=== PATIENT | female | born 1935 | race Caucasian/White ===

== ENCOUNTER → 2018-12-12 | Outpatient (CLI) | payer MEDICARE ==
--- NOTE | 2018-12-12 14:09 | Diagnostic Imaging Report ---
INDICATION: Prior history of breast carcinoma. Patient has an intra-abdominal mass with omental metastases. TECHNIQUE: Serum blood glucose level at the time of injection was 77 mg/dL. Patient was administered 13.2 mCi F-18 FDG intravenously in the right forearm and PET imaging from the top of the skull to mid thighs was performed. Noncontrast CT was also performed for attenuation correction and anatomic correlation. COMPARISON: No prior imaging is available for comparison. FINDINGS: There is symmetric activity throughout the brain. Soft tissues of the neck are unremarkable. There appears to be some physiologic activity within the right tonsillar pillar. Imaging through the chest demonstrates normal physiologic mediastinal activity. No mediastinal or hilar hypermetabolic lymphadenopathy is seen. The pulmonary parenchyma is unremarkable. Imaging through the abdomen shows physiologic activity within the GI and tracts. No abnormal hypermetabolism is identified. The associated CT portion of the exam does show an indeterminate somewhat low-density mass in the right abdomen anterior to the lower pole of the right kidney and slightly medial to the right colon. This measures approximately 3.6 cm AP x 3.2 cm transverse. This does not appear to communicate with small or large bowel and is indeterminate. This does not show FDG avidity however. No other abnormalities are detected. IMPRESSION: 1. Essentially unremarkable PET/CT study without evidence of FDG avid mass or lymphadenopathy. 2. Indeterminate low-density lesion in the right abdomen, as described. This does not show FDG uptake. Conventional CT with IV and oral contrast may be useful for further evaluation. Dictated by: Dictated on workstation # [id number]
== END ==
LOC: RAD 10:20
PROVIDERS: ATTEND Surgery
DX: C78.6 Secondary malignant neoplasm of retroperitoneum and peritoneum (principal); C80.1 Malignant (primary) neoplasm, unspecified; Z85.3 Personal history of malignant neoplasm of breast